=== PATIENT | female | born 1990 | race Caucasian/White ===

== ENCOUNTER 2017-07-19 19:06 | Inpatient (IN) | payer BC, OTHER ==
[~2017-07-19] VITALS: Ht 172.7 cm; Wt 90.7 kg
--- NOTE | 2017-07-19 21:15 | NUR ---
INTAKE ASSESSMENT BP: 145/85, HR: 105, RR:18, SpO2: 96% T:98.0 Pt is in stable condition and able to be admitted on the unit. Unit protocols regarding medications and vitals signs every 4 hours were explained. Pt verbalized understanding. Will continue admission upon arrival on the unit.
[2017-07-19] MEDS ORDERED: MAGNESIUM HYDROXIDE 30 ML LIQUID UDC PO PRN (21:30)
[2017-07-19] MEDS ORDERED: ACETAMINOPHEN 325 MG TABLET PO PRN (21:30)
[2017-07-19] MEDS ORDERED: MAG HYDROX/AL HYDROX/SIMETH 30 ML LIQUID UDC PO PRN (21:30)
[2017-07-19] MEDS ORDERED: METHOCARBAMOL 750 MG TABLET PO PRN (21:30)
[2017-07-19] MEDS ORDERED: diphenhydrAMINE 50 MG CAPSULE PO PRN (21:30)
[2017-07-19] MEDS ORDERED: DIAZEPAM 10 MG TABLET PO PRN ×2 (21:30)
[2017-07-19] MEDS ORDERED: LOPERAMIDE HCL 2 MG CAPSULE PO PRN ×2 (21:30)
[2017-07-19] MEDS ORDERED: LORAZEPAM 2 MG/1 ML VIAL IM PRN (21:30)
[2017-07-19] MEDS ORDERED: ONDANSETRON ODT 4 MG TAB.RAPDIS SL PRN (21:30)
[2017-07-19] MEDS ORDERED: MIRALAX 17 GM POWD.PACK PO PRN (21:30)
[2017-07-19] MEDS ORDERED: ONDANSETRON 4 MG/2 ML VIAL IM PRN (21:30)
[2017-07-19] MEDS ORDERED: DICYCLOMINE HCL 20 MG TABLET PO PRN (21:30)
[2017-07-19] MEDS ORDERED: DIAZEPAM 5 MG TABLET PO PRN (21:30)
[2017-07-19 21:54] LABS: *URINE HCG, QUAL NEGATIVE (NEGATIVE)
--- NOTE | 2017-07-19 22:00 | NUR ---
ADMISSION NOTE COWS:9 CIWA:9 Pt arrived ambulatory from [facility] Intake to the third floor accompanied by a DESIGN MAINTENANCE ENGINEER at 2129. Pt is a 26 year old female admitted on 07/19/17 for Benzodiazepine and Heroin dependency. Pt is full code with allergy to PCN. Pt reports PMHx of anxiety. She denies having a PCP and denies taking any home medications. She reports her last sobriety was for 5 months, 5 months ago. She reports her last detox was at [facility] in 2017 and has been living in [facility]. She recently relapsed and has been using for 3 weeks. She describes her current use as: 1. Xanax 6-8 mg daily for 3 weeks. Last dose: "6-8mg" on 07/18/17 2. Heroin (smoke) 1-3 grams daily for 3 weeks. Last dose: 1 gram on 07/19/17 "in the morning" She describes her withdrawal symptoms as " body aches, chills, nausea, anxiety and tremors." Upon assessment, pt is alert and oriented x4, speech is clear and audible. Pt noted to be anxious, agitated, restless and worried. Heart rate regular. Denies chest pain or SOB. PERRLA, breathing is even and unlabored, lung sounds clear. Abdomen is soft and non-distended. Bowel sounds present in all quadrants, last BM 07/18/17. Pt reports that BM is regular. Pt's skin is warm, dry and intact. MD aware of pt's admission. Pt oriented to room and unit. Safety measures in place. Will continue to monitor.
[2017-07-19 22:05] LABS: *AMPHETAMINE, URINE POSITIVE (NEGATIVE); *BARBITURATE, URINE NEGATIVE (NEGATIVE); *CANNABINOID, URINE POSITIVE (NEGATIVE); *COCCAINE, URINE NEGATIVE (NEGATIVE); *OPIATE, URINE POSITIVE (NEGATIVE); *PHENCYCLIDINE SCREEN,URINE NEGATIVE (NEGATIVE)
--- NOTE | 2017-07-19 22:15 | NUR ---
REFUSED LABS Pt refused to have labs drawn. Explained to pt that labs will be drawn at 0600. Pt verbalized understanding.
--- NOTE | 2017-07-19 22:24 | NUR ---
PRN ZOFRAN Pt complains of nausea with no episode of vomiting. PRN Zofran administered as ordered. Will monitor effectiveness.
[2017-07-19] MEDS ORDERED: DIAZEPAM 10 MG TABLET PO SCH (22:30)
[2017-07-19] MEDS ORDERED: BUPRENORPHINE HCL 2 MG TAB.SUBL SL PRN (23:00)
--- NOTE | 2017-07-19 23:24 | NUR ---
PRN ZOFRAN REASSESSMENT PRN medication effective. Pt reports decrease in nausea. Safety measures in place. Will continue to monitor.
[2017-07-20] VITALS: BP 103/57
[2017-07-20 04:00] VITALS: BP 116/73
--- NOTE | 2017-07-20 07:21 | NUR ---
END OF SHIFT Pt is a 26 year old female patient. She received a one time order of Valium and PRN Zofran. She is scheduled to start a 5 day Subutex and 4 day Valium taper today 07/20/17. She slept a total of 6 hrs, Intake: 355mL, Void: x1, BM:0, COWS:9, CIWA:9. She remains alert and oriented x4, breathing even and unlabored. Safety measures in place. Endorsed to AM shift.
[2017-07-20 08:00] VITALS: BP 115/64
[2017-07-20] MEDS: GABAPENTIN 400 MG CAPSULE PO SCH ×4 (08:08→20:39)
[2017-07-20] MEDS: DIAZEPAM 10 MG TABLET PO SCH ×4 (08:08→20:39)
[2017-07-20] MEDS: BUPRENORPHINE HCL 2 MG TAB.SUBL SL SCH ×3 (08:09→20:40)
[2017-07-20] MEDS ORDERED: TUBERCULIN,PURIF.PROT.DERIV. 5 TU/0.1 ML TEST ID ONE (09:00)
[2017-07-20 10:04] LABS: ALANINE AMINOTRANSFERASE 25 U/L (14-59); ALKALINE PHOSPHATASE 70 U/L (50-136); ASPARTATE AMINOTRANSFERASE 14 U/L (15-37); BILIRUBIN,TOTAL 0.2 mg/dL (0.2-1.0); CARBON DIOXIDE 28 mmol/L (21-32); CHLORIDE 103 mmol/L (98-107); CREATININE 0.9 mg/dL (0.6-1.3); GLUCOSE 108 mg/dL (74-106); MAGNESIUM 1.9 mg/dL (1.8-2.4); POTASSIUM 3.4 mmol/L (3.5-5.1); UREA NITROGEN, BLOOD 12 mg/dL (7-18)
[2017-07-20 10:06] LABS: ETHANOL < 3 MG/DL (0-0)
[2017-07-20 10:15] LABS: BASOPHILS % (AUTO) 0.5 % (0.0-2.0); EOSINOPHILS # (AUTO) 0.3 K/uL (0.0-0.7); EOSINOPHILS % (AUTO) 5.8 % (0.0-7.0); HEMATOCRIT 36.9 % (31.2-41.9); HEMOGLOBIN 11.7 g/dL (10.9-14.3); LYMPHOCYTES # (AUTO) 1.1 K/uL (20.0-40.0); LYMPHOCYTES % (AUTO) 20.6 % (20.5-51.5); MEAN CORPUSCULAR HEMOGLOBIN 22.9 uug (24.7-32.8); MEAN CORPUSCULAR HGB CONC 32 g/dL (32.3-35.6); MONOCYTES # (AUTO) 0.6 K/uL (2.0-10.0); MONOCYTES % (AUTO) 10.6 % (0.0-11.0); NEUTROPHILS # (AUTO) 3.2 K/uL (1.8-8.9); NEUTROPHILS % (AUTO) 62.5 % (38.5-71.5); PLATELET COUNT (AUTO) 239 K/uL (179-408); RED BLOOD CELL COUNT(AUTO) 5.12 MIL/uL (3.63-4.92); WHITE BLOOD COUNT (AUTO) 5.2 K/uL (3.8-11.8)
[2017-07-20 11:09] LABS: BAND % (MANUAL) 1 % (0-10); EOSINOPHILS % (MANUAL) 7 % (0-8); LYMPHOCYTES % (MANUAL) 23 % (20-40); MONOCYTES % (MANUAL) 11 % (2-10); NEUTROPHILS % (MANUAL) 58 % (42-75)
[2017-07-20 12:00] VITALS: BP 123/66
[2017-07-20 16:00] VITALS: BP 112/66
--- NOTE | 2017-07-20 18:41 | NUR ---
end of shift report , patient has been more visible on unit in afternoon less anxiety per patient . interacting with select male client appears to be drug seekig no outbursts continue to monitor for safety
--- NOTE | 2017-07-20 19:30 | NUR ---
START OF SHIFT Received 26 year old female patient. Pt is awake, alert and oriented x4. Noted to be walking around the unit, appears anxious, worried and suspicious. Per endorsement, pt received new order for Seroquel 300 mg HS. She did not receive or request any PRN medications. Safety measures in place. Will continue to monitor.
[2017-07-20 20:00] VITALS: BP 132/81
[2017-07-20] MEDS ORDERED: POTASSIUM CHLORIDE 10 MEQ CAPSULE.SA PO ONE (21:00)
[2017-07-20] MEDS: QUETIAPINE FUMARATE 200 MG TABLET PO PRN (22:00)
--- NOTE | 2017-07-20 22:00 | NUR ---
PRN SEROQUEL Pt complains of insomnia and reports difficulty staying asleep. PRN Seroquel administered as ordered. Safety measures in place. Will monitor.
--- NOTE | 2017-07-20 23:10 | NUR ---
PRN SEROQUEL REASSESSMENT PRN medication effective. Pt is lying in bed with eyes closed and is asleep. Breathing is even and unlabored. Safety measures in place. Will continue to monitor.
[2017-07-21 00:15] VITALS: BP 123/72
--- NOTE | 2017-07-21 04:19 | NUR ---
VITALS REFUSED, COWS/CIWA DEFERRED 0400 vitals refused by pt. Pt stated she does not want to be woken up at 0400 for vitals. COWS and CIWA deferred d/t pt lying in bed with eyes closed and is asleep. Breathing even and unlabored. Safety measures in place. Will continue to monitor.
--- NOTE | 2017-07-21 07:13 | NUR ---
END OF SHIFT Pt is a 26 year old female patient. Pt remains alert and oriented x4. Pt reported that she has trouble falling and staying asleep. She Received PRN Seroquel 300 mg at 2200. Her Potassium was 3.4, and was replaced at 2200 with Potassium Chloride 30 meQ. She slept a total of 7 hrs, Intake: 1908mL, Void: x4, BM:0, COWS:8, CIWA:8. Breathing is even and unlabored. Safety measures in place. Endorsed to AM shift.
--- NOTE | 2017-07-21 07:30 | NUR ---
START OF SHIFT PT IS A/O X4, RESPIRATIONS EVEN AND UNLABORED. PT REPORTS HAVING BACK PAIN 7/10, GENERALIZED BODY ACHES, HOT/COLD SWEATS, ANXIETY, RESTLESSNESS, NAUSEA. PT REFUSED ZOFRAN. PT REPORTS HAVING INTERMITTENT SLEEP THROUGHOUT NIGHT. SIDE RAILS UP X2 BED IS IN LOWEST POSITION, ALL SAFETY MEASURES IN PLACE. CALL LIGHT WITHIN REACH. WILL CONTINUE TO MONITOR.
[2017-07-21 08:00] VITALS: BP 97/63
[2017-07-21] MEDS: IBUPROFEN 600 MG TABLET PO PRN ×2 (08:44→21:03)
--- NOTE | 2017-07-21 08:44 | NUR ---
PRN IBUPROFEN 600 MG PO PRN GIVEN FOR BACK ACHE 12/18. WILL MONITOR FOR EFFECTIVENESS.
[2017-07-21] MEDS: GABAPENTIN 400 MG CAPSULE PO SCH ×4 (08:45→21:03)
[2017-07-21] MEDS: DIAZEPAM 10 MG TABLET PO SCH ×3 (08:45→21:04)
[2017-07-21] MEDS ORDERED: HYDROXYZINE PAMOATE 25 MG CAPSULE PO PRN (09:00)
[2017-07-21] MEDS ORDERED: BUPRENORPHINE HCL 2 MG TAB.SUBL SL SCH (09:00)
--- NOTE | 2017-07-21 09:44 | NUR ---
REASSESSMENT PT REPORTED MED WAS EFFECTIVE FOR BACK PAIN NOW 0/10. WILL CONTINUE TO MONITOR.
[2017-07-21 12:00] VITALS: BP 109/66
[2017-07-21 13:17] LABS: HEPATITIS B SURFACE AG Negative (Negative)
[2017-07-21] MEDS: DICYCLOMINE HCL 20 MG TABLET PO SCH ×2 (14:02→21:03)
[2017-07-21] MEDS: BUPRENORPHINE HCL 2 MG TAB.SUBL SL SCH ×2 (14:02→21:05)
[2017-07-21] MEDS: CLONIDINE HCL 0.1 MG TABLET PO PRN (14:03)
--- NOTE | 2017-07-21 14:03 | NUR ---
PRN CLONIDINE 0.1 MG PO PRN GIVEN FOR CHILLS, COLD/HOT SWEATS, ANXIETY, RESTLESSNESS, AND AGITATION. WILL MONITOR FOR EFFECTIVENESS.
--- NOTE | 2017-07-21 15:03 | NUR ---
REASSESSMENT PT REPORTED MEDICATION WAS EFFECTIVE FOR S/S OF W/D. PT APPEARS CALMER AND STATES MED HELPED CHILLS, HOT/COLD FLASHES. WILL CONTINUE TO MONITOR.
[2017-07-21 16:00] VITALS: BP 98/62
--- NOTE | 2017-07-21 19:30 | NUR ---
END OF SHIFT PT LAST COWS 10 AND CIWA 7 AT 1600. PT REPORTS HAVING BACK PAIN, HOT/COLD SWEATS, ANXIETY, RESTLESSNESS. PT ALL SAFETY MEASURES IN PLACE. ALL SAFETY MEASURES IN PLACE. CALL LIGHT WITHIN REACH. WILL GIVE ALL PERTINENT INFO AND ENDORSEMENT TO JUNCTION MAKER NURSE.
--- NOTE | 2017-07-21 19:40 | NUR ---
START OF SHIFT Patient is a 26-year-old female admitted on 07/19/17 for Xanax and heroin withdrawal. Patient is on day 2 of 4-day Valium and 5-day Subutex taper, tolerating. Last COWS was 10, CIWA 7. Patient received PRN Clonidine and PRN Motrin during day shift for S/S of withdrawal and for back pain. Patient reports she currently has back pain of 6/10 on pain scale. She also reports constipation and is requesting PRN MOM. Patient appears anxious and restless. Safety measures in place, bed locked in low position, side rails up x2, call light within reach. Will continue to monitor.
[2017-07-21] MEDS ORDERED: DIAZEPAM 10 MG TABLET PO PRN ×2 (19:45)
[2017-07-21] MEDS ORDERED: DIAZEPAM 5 MG TABLET PO PRN (19:45)
[2017-07-21] MEDS ORDERED: KETOROLAC TROMETHAMINE 30 MG INJ IM PRN (19:45)
[2017-07-21 20:00] VITALS: BP 127/84
[2017-07-21] MEDS: CLONIDINE HCL 0.1 MG TABLET PO SCH (21:04)
--- NOTE | 2017-07-21 21:17 | NUR ---
PRN MOTRIN AND MOM Patient reports lower back pain 6/10 on pain scale, and is also requesting PRN for constipation. PRN Motrin given PO at 2102 and PRN milk of magnesia given PO at 2116. Safety measures in place, call light within reach. Will reassess for effectiveness.
[2017-07-21] MEDS: QUETIAPINE FUMARATE 200 MG TABLET PO PRN (22:03)
--- NOTE | 2017-07-21 22:03 | NUR ---
PRN SEROQUEL Patient reported difficulty sleeping and requested PRN Seroquel; given PO. Safety measures in place, call light within reach. Will reassess for effectiveness.
--- NOTE | 2017-07-21 22:17 | NUR ---
PRMundo SINGLETON AND MOM REASSESSMENT Patient reports that her pain has subsided. No BM within administration of MOM PO. Will continue to monitor and assess. Safety measures in place, call light within reach.
--- NOTE | 2017-07-21 23:03 | NUR ---
PRN SEROQUEL REASSESSMENT Patient is resting in bed with eyes closed, respirations even and unlabored; PRN effective. Safety measures in place, call light within reach. Will continue to monitor.
--- NOTE | 2017-07-22 | NUR ---
VITALS REFUSED, COWS & CIWA DEFERRED Patient refused midnight vitals, COWS and CIWA deferred due to patient asleep. Respirations 14/min, safety measures in place, call light within reach. Will continue to monitor.
--- NOTE | 2017-07-22 04:00 | NUR ---
VITALS REFUSED, COWS AND CIWA DEFERRED Patient refused 4AM vitals, COWS and CIWA deferred due to patient asleep. Respirations 16/min, safety measures in place, call light within reach. Will continue to monitor.
--- NOTE | 2017-07-22 07:30 | NUR ---
END OF SHIFT Patient is a 26-year-old female admitted on 07/19/17 for Xanax and heroin withdrawal. Patient is on day 3 of 4-day Valium and 5-day Subutex taper. Last COWS was 9, CIWA 8. Patient received PRN Seroquel, Motrin, and MOM. Patient slept for 7 hours, total intake 1,355 mL, void x3 stool x0. Safety measures in place, bed locked in low position, side rails up x2, call light within reach. Will endorse to day shift.
--- NOTE | 2017-07-22 07:36 | NUR ---
START OF SHIFT RECEIVED PT LAYING IN BED, A/OX4, RESPIRATIONS EVEN AND UNLABORED. PT IS PRESENTED WITH BACK PAIN 8/10 PAIN, COLD/HOT SWEATS, GENERALIZED BODY ACHES, ANXIETY, RESTLESSNESS. SIDE RAILS UPX2, BED IS IN LOWEST POSITION. ALL SAFETY MEASURES IN PLACE. WILL CONTINUE TO MONITOR.
[2017-07-22 08:00] VITALS: BP 105/62
[2017-07-22] MEDS: DIAZEPAM 5 MG TABLET PO SCH ×2 (09:04→14:43)
[2017-07-22] MEDS: GABAPENTIN 400 MG CAPSULE PO SCH ×4 (09:04→21:13)
[2017-07-22] MEDS: FAMOTIDINE 20 MG TABLET PO SCH (09:04)
[2017-07-22] MEDS: BUPRENORPHINE HCL 2 MG TAB.SUBL SL SCH ×3 (09:04→21:14)
[2017-07-22] MEDS: DICYCLOMINE HCL 20 MG TABLET PO SCH ×3 (09:05→21:13)
[2017-07-22] MEDS: CLONIDINE HCL 0.1 MG TABLET PO SCH ×3 (09:05→21:14)
[2017-07-22 12:00] VITALS: BP 130/77
[2017-07-22 16:00] VITALS: BP 103/66
--- NOTE | 2017-07-22 18:50 | NUR ---
END OF SHIFT PT LAST COWS 10, CIWA 8. PT REPORTS HAVING INCREASED S/S OF W/D DUE TO LOWERING OF TAPER. PT ATTENDED GROUP BUT EXCUSED FOR 330 GROUP DUE TO NOT FEELING WELL. ALL SAFETY MEASURES IN PLACE. WILL GIVE ALL ENDORSEMENT AND PERTINENT INFO TO DOUGH SHEETER NURSE.
--- NOTE | 2017-07-22 19:15 | NUR ---
Start of shift note Received report from day shift nurse. Pt is a 26 yo female, A+Ox4, presenting to [facility] for Opiate/Benzo dependence. Pt has Allergies to PCN, is on Full code status, and on Regular diet. Pt is on Fall and Seizure precautions. Pt has HX of Anxiety. Pt is on 4 day Valium and 5 day Subutex tapers, tolerated well. No s/s of distress noted at this time. Respirations even and unlabored. Will continue to monitor.
[2017-07-22 20:11] VITALS: BP 135/78
[2017-07-22] MEDS ORDERED: DIAZEPAM 10 MG TABLET PO SCH (21:00)
[2017-07-22] MEDS: QUETIAPINE FUMARATE 200 MG TABLET PO PRN (22:20)
--- NOTE | 2017-07-22 22:20 | NUR ---
PRN Seroquel Pt c/o inability to sleep and requested for PRN Seroquel. Medication given and tolerated well. Will reassess within 1 HR. Will continue to monitor.
--- NOTE | 2017-07-22 23:10 | NUR ---
PRN Seroquel Reassessment Medication effective. Pt is resting well in bed. No s/s of ASE/distress noted at this time. Respirations even and unlabored. Will continue to monitor.
[2017-07-23 00:43] VITALS: BP 133/72
[2017-07-23 04:16] VITALS: BP 132/75
--- NOTE | 2017-07-23 07:00 | NUR ---
End of shift note Pt is a 26 yo female, A+Ox4, presenting to [facility] for Opiate/Benzo dependence. Pt has Allergies to PCN, is on Full code status, and on Regular diet. Pt is on Fall and Seizure precautions. Pt has HX of Anxiety. Pt is on 4 day Valium and 5 day Subutex tapers, tolerated well. Pt was given PRN Seroquel @2220. Pt slept for a total of 6 HRS. Last COWS: 8 and Last CIWA: 8 @0400. No s/s of distress noted at this time. Respirations even and unlabored. Will endorse to day shift nurse.
--- NOTE | 2017-07-23 07:45 | NUR ---
START OF SHIFT RECEIVED PT LAYING IN BED, A/OX4, RESPIRATIONS EVEN AND UNLABORED. PT C/O COLD/HOT SWEATS, GENERALIZED BODY ACHES, ANXIETY, RESTLESSNESS. ENCOURAGED PT TO PARTICIPATE IN GROUPS AND ACTIVITIES TO DEVELOP COPING SKILLS AND HELP ALLEVIATE ANXIETY. SIDE RAILS UPX2, BED IS IN LOWEST POSITION. ALL SAFETY MEASURES IN PLACE. WILL CONTINUE TO MONITOR.
[2017-07-23 08:00] VITALS: BP 106/61
[2017-07-23] MEDS: FAMOTIDINE 20 MG TABLET PO SCH (08:56)
[2017-07-23] MEDS: GABAPENTIN 400 MG CAPSULE PO SCH ×4 (08:56→21:20)
[2017-07-23] MEDS: DICYCLOMINE HCL 20 MG TABLET PO SCH ×3 (08:57→21:20)
[2017-07-23] MEDS: DIAZEPAM 5 MG TABLET PO SCH ×2 (08:57→21:20)
[2017-07-23] MEDS: CLONIDINE HCL 0.1 MG TABLET PO SCH (08:57)
[2017-07-23] MEDS: BUPRENORPHINE HCL 2 MG TAB.SUBL SL SCH ×2 (08:57→21:20)
[2017-07-23 12:00] VITALS: BP 101/61
[2017-07-23] MEDS: CLONIDINE HCL 0.1 MG TABLET PO PRN ×2 (15:28→22:29)
--- NOTE | 2017-07-23 15:28 | NUR ---
PRN CLONIDINE 0.1 PO PRN GIVEN FOR INCREASED ANXIETY, AGITATION, COLD/HOT SWEATS, CHILLS. HR:120. WILL MONITOR FOR EFFECTIVENESS.
[2017-07-23 16:00] VITALS: BP 126/76
--- NOTE | 2017-07-23 16:25 | NUR ---
REASSESSMENT PT REPORTED MEDICATION WAS EFFECTIVE FOR ANXIETY AND PT APPEARS MORE CALM. WILL CONTINUE TO MONITOR.
--- NOTE | 2017-07-23 19:37 | NUR ---
END OF SHIFT LAST COWS 11 CIWA 10 @1600. PT C/O INCREASED S/S OF W/D. PT REPORTS HAVING HOT/COLD SWEATS, INCREASED ANXIETY, RESTLESSNESS, FATIGUE, IRRITABILITY. PT PRESENTED WITH INCREASED RR, HR ELEVATED TO 120 DURING SHIFT. CLONIDINE PO PRN GIVEN AND WAS EFFECTIVE. PT DID NOT ATTEND AM GROUP DUE TO NOT FEELING WELL BUT WAS ABLE TO ATTEND AFTERNOON GROUP. ALL SAFETY MEASURES IN PLACE. WILL GIVE ENDORSEMENT TO TELECOMMUNICATION EQUIPMENT REPAIRER NURSE.
--- NOTE | 2017-07-23 19:45 | NUR ---
START OF SHIFT Patient is a 26-year-old female admitted on 07/19/17 for xanax and heroin withdrawal. Patients last COWS was 11, last CIWA was 10 per day shift. Per day shift nurse patient received PRN clonidine today. Patient is on day 4 of 4-day valium and 5-day subutex taper, tolerating well but verbalizing concern about withdrawing from Subutex once discharged. Upon assessment, patient states I had body aches last night and this morning, but I feel much better now. Patient is scheduled to receive Bentyl, gabapentin, valium, and subutex at 2100. Safety measures in place, bed locked in low position, side rails up x2, call light within reach. Will continue to monitor. Addendum: 07/23/17 at 2314 by CINDY BASURTO LVN Quoted patient: "I had body aches last night and this morning, but I feel much better now."
[2017-07-23 20:00] VITALS: BP 119/74
[2017-07-23] MEDS: QUETIAPINE FUMARATE 200 MG TABLET PO PRN (22:05)
--- NOTE | 2017-07-23 22:05 | NUR ---
PRN SEROQUEL Patient states she has great difficulty sleeping and is requesting PRN Seroquel. Safety measures in place, call light within reach. Will reassess in one hour.
--- NOTE | 2017-07-23 22:29 | NUR ---
PRN CLONIDINE Patient reports anxiety, agitation, chill, and appears restless. HR 113. PRN Clonidine 0.1mg given PO. Safety measures in place, call light within reach. Will reassess for effectiveness.
--- NOTE | 2017-07-23 23:05 | NUR ---
PRN SEROQUEL REASSESSMENT Patient is in bed with eyes closed, sleeping, respirations even and unlabored. PRN Seroquel effective. Safety measures in place, call light within reach. Will continue to monitor.
--- NOTE | 2017-07-23 23:29 | NUR ---
PRN CLONIDINE REASSESSMENT Patient is in bed with eyes closed, sleeping, respirations even and unlabored. Unable to reassess PRN Clonidine at this time. Safety measures in place, call light within reach. Will continue to monitor.
--- NOTE | 2017-07-24 | NUR ---
VITALS REFUSED, COWS & CIWA DEFERRED Patient refused midnight vitals, respirations even and unlabored, 16/min. COWS and CIWA deferred due to patient sleeping; to be assessed and scored while patient is awake per protocol. Safety measures in place, call light within reach. Will continue to monitor.
--- NOTE | 2017-07-24 04:00 | NUR ---
VITALS REFUSED, COWS & CIWA DEFERRED Patient refused 4AM vitals, respirations are even and unlabored, 16/min at this time. COWS and CIWA deferred due to patient sleeping; to be assessed and scored while patient is awake per protocol. Safety measures in place, bed locked in low position, side rails up x2, call light within reach. Will continue to monitor.
--- NOTE | 2017-07-24 07:10 | NUR ---
Start of Shift Report from the night nurse: pt is a 26 y/o female here for Heroin 6-8mg daily for 3wks and Xanax 1-3g smoked daily for 3 weeks; 4 day Valium and 5 day Subutex tapers ordered. Pt is a full code, allergic to PCN, Regular diet, fal and seizure pre precautions ordered. V/S stable. Skin is intact. PRN Clonidine and Seroquel given last night. No new labs or orders endorsed to me. Last COWS 8 CIWA 9. Pt is asleep in room. Will cont. to monitor the pt.
--- NOTE | 2017-07-24 07:25 | NUR ---
END OF SHIFT Patient is a 26-year-old female admitted on 07/19/17 for xanax and heroin withdrawal. Patient slept for 8 hours, total intake 1,349 mL, void x2, stool x0. Patient received PRN Seroquel at 2205 for difficulty sleeping and Clonidine at 2229 for anxiety, agitation, restlessness and chills. Both PRNs were effective. Today is patients day 5 of her 5-day Subutex taper, she has completed her 4-day valium taper yesterday; tolerated well. Last COWS was 8, last CIWA 9. Safety measures in place, bed locked in low position, side rails up x2, call light within reach. Will endorse to day shift.
[2017-07-24 08:00] VITALS: BP 108/51
--- NOTE | 2017-07-24 08:30 | NUR ---
PRN Medication Administration Pt is resting in bed, flushed, anxious and somewhat agitated, V/S stable; PRN Clonidine 0.1mg & Vistaril 25mg given as ordered. Will reassess in 1H. Addendum: 07/24/17 at 1255 by EMPERATRIZ AMBRIZ RN ERROR WRONG PT
[2017-07-24] MEDS: DICYCLOMINE HCL 20 MG TABLET PO SCH ×3 (08:48→21:27)
[2017-07-24] MEDS: FAMOTIDINE 20 MG TABLET PO SCH (08:48)
[2017-07-24] MEDS: GABAPENTIN 400 MG CAPSULE PO SCH ×4 (08:49→21:27)
[2017-07-24] MEDS ORDERED: DIAZEPAM 5 MG TABLET PO SCH (09:00)
[2017-07-24] MEDS ORDERED: BUPRENORPHINE HCL 2 MG TAB.SUBL SL SCH (09:00)
--- NOTE | 2017-07-24 09:30 | NUR ---
PRN Medication Administration Pt just returned from smoking and c/o muscle tension; PRN Robaxin 750mg given as ordered. Pt states that is she is frustrated that she was unable to express her feeling completely with psych eval. I explained that if she still feels anxious that she has more PRN medications to help with anxiety w/n parameters and to let met know. Will reassess in 1H. Addendum: 07/24/17 at 1256 by EMPERATRIZ AMBRIZ RN ERROR WRONG PT.
--- NOTE | 2017-07-24 10:30 | NUR ---
Reassessment Pt is in room writing in journal, and states that she denies muscle tension; Robaxin is effective. Will cont. to monitor the pt. Addendum: 07/24/17 at 1307 by EMPERATRIZ AMBRIZ RN error wrong pt
[2017-07-24] MEDS: CLONIDINE HCL 0.1 MG TABLET PO PRN ×2 (12:33→21:30)
--- NOTE | 2017-07-24 12:35 | NUR ---
PRN Medication Administration Pt is in room with moderate anxiety, V/S stable; PRN Clonidine 0.1mg given as ordered. Will reassess in 1H.
[2017-07-24 13:00] VITALS: BP 126/72
--- NOTE | 2017-07-24 13:35 | NUR ---
Reassessment Pt is about to go down and smoke after lunch and states that her anxiety is more relieved; Clonidine is effective. Will cont. to monitor the pt.
[2017-07-24 16:00] VITALS: BP 98/63
--- NOTE | 2017-07-24 16:15 | NUR ---
PRN Medication Administration Pt is very upset, agitated, and anxious since the group therapy was not tolerable for her and wanted to go to smoke. The DON and CN explained to her that she has to wait to go smoke after the group therapy is over but she became angry and more anxious; PRN Vistaril 25mg & Robaxin 750mg given with scheduled Gabapentin and Bentyl. Dr. Palacios notified that the pt wants Once time dose Clonidine she states was explained to her this morning. Will f/u withthe new one time order of clonidine and will reassess PRNs in 1H.
[2017-07-24] MEDS ORDERED: CLONIDINE HCL 0.1 MG TABLET PO ONE (16:45)
--- NOTE | 2017-07-24 16:45 | NUR ---
Reassessment & PRN Medication Administration Pt is in room resting in bed and watching T.V. she states that she is still anxious but muscle tension is relieved; Robaxin is effective and Vistaril is somewhat effective, notified and new order for ONE time dose of Clonidine 0.1mg given as ordered. Will reassess in 1H.
--- NOTE | 2017-07-24 17:45 | NUR ---
Reassessment Pt returned from dinner and smoking and states that her anxiety is relieved; Clonidine is effective. Will cont. to monitor the pt.
--- NOTE | 2017-07-24 19:16 | NUR ---
End of Shift Report to the night nurse: pt is a 26 y/o female here for Heroin 6-8mg daily for 3wks and Xanax 1-3g smoked daily for 3 weeks; 4 day Valium and 5 day Subutex tapers ordered. Pt is a full code, allergic to PCN, Regular diet, fal and seizure pre precautions ordered. Clear lung sounds and no SOB. V/S stable. Skin is intact. Last BM today. Adequeate fluid intake and eating habits during my shift. PRN Vistaril 25mg, Robaxin 750, & Clonidine 0.1mg given during my shift with a ONE time dose of Clonidine 0.1mg at 1645pm for her anxiety. New order for d/c tomorrow. No hallucinations, delusions, or suicidal ideations noted. Pt attempted to attend group therapy and activies during my shift. Last COWS 2 CIWA 2.
[2017-07-24 20:00] VITALS: BP 119/68
--- NOTE | 2017-07-24 20:00 | NUR ---
Start of Shift Pt is a 26 year old female admitted for Opiate/Benzo withdrawal, completed Valium and Subutex taper. Pt is scheduled for discharge tomorrow. Upon assessment, pt presents in room alert/oriented x3, anxious/irritable, flushed/clammy skin, worried and preoccupied with discharge. Reassurance provided pt redirected towards positive measures on how to manage anxiety. Medications due, safety measures in place, will continue to monitor.
[2017-07-24] MEDS ORDERED: METH-406 PO (21:56)
[2017-07-24] MEDS ORDERED: CLON0.1T14 PO (21:56)
[2017-07-24] MEDS ORDERED: DICY20TA28 PO (21:56)
[2017-07-24] MEDS ORDERED: GABA-536 PO (21:56)
[2017-07-24] MEDS ORDERED: HYDR-3895 PO (21:56)
[2017-07-24] MEDS ORDERED: IBUP-1955 PO (21:56)
[2017-07-24] MEDS ORDERED: QUET200T PO (21:56)
[2017-07-24] MEDS: QUETIAPINE FUMARATE 200 MG TABLET PO PRN (22:21)
--- NOTE | 2017-07-24 22:21 | NUR ---
PRN Administration Pt is anxious, irritable, fidgety with rapid speech. Clonidine 0.1mg PRN administered. Safety measures in place, will continue to monitor. Addendum: 07/25/17 at 0109 by KELBY TRUJILLO RN WRONG TIME CHARTED: CLONIDINE 0.1MG ADMINISTERED AT 2130
--- NOTE | 2017-07-24 22:22 | NUR ---
PRN Administration/Reassessment Upon reassessment, pt reports a decrease in anxious, pt is in bed, ready for sleep and requests sleep aid. Seroquel 300mg PRN administered. Safety measures in place, will continue to monitor.
--- NOTE | 2017-07-24 23:30 | NUR ---
PRN Reassessment Pt is sleeping, in bed, resting respirations even. Seroquel 300mg PRN for sleep effective. Safety measures in place, will continue to monitor.
[2017-07-25] VITALS: BP 108/58
--- NOTE | 2017-07-25 | NUR ---
COWS/CIWA deferred d/t pt sleeping. BP 108/58, pulse 82, resp 16, SpO2 98% room air, temp 98.[address], will continue to monitor.
--- NOTE | 2017-07-25 04:00 | NUR ---
COWS/CIWA deferred d/t pt sleeping. Pt refused to be woken up for 0[address], will continue to monitor.
--- NOTE | 2017-07-25 07:10 | NUR ---
End of Shift Pt is a 26 year old female admitted for Opiate/Benzo withdrawal, completed Valium and Subutex taper. Pt is scheduled for discharge today. During shift, pt presented to be anxious/irritable, flushed/clammy skin, worried and preoccupied with discharge scheduled medications administered along with clonidine 0.1mg PRN and Seroquel 300mg PRN for sleep. COWS 5 and CIWA 5. Pt slept for 7 hours, intake of 1198m PO, voids x3 and stool x0. Safety measures in place, endorsed to day shift nurse.
--- NOTE | 2017-07-25 07:45 | NUR ---
START OF SHIFT RECEIVED PT RESTING IN BED, A/OX4, RESPIRATIONS EVEN AND UNLABORED. PT REPORTS HAVING ANXIETY ABOUT BEING D/C FROM [facility]. PT IS TO BE D/C'ED TODAY. SIDE RAILS UPX2, BED IS IN LOWEST POSITION. CALL LIGHT WITHIN REACH. WILL CONTINUE TO MONITOR.
[2017-07-25] MEDS: GABAPENTIN 400 MG CAPSULE PO SCH (08:27)
[2017-07-25] MEDS: FAMOTIDINE 20 MG TABLET PO SCH (08:27)
[2017-07-25] MEDS: DICYCLOMINE HCL 20 MG TABLET PO SCH (08:27)
[2017-07-25 08:28] VITALS: BP 105/62
[2017-07-25] MEDS: CLONIDINE HCL 0.1 MG TABLET PO PRN (08:28)
--- NOTE | 2017-07-25 08:28 | NUR ---
PRN CLONIDINE 0.1 MG PO PRN GIVEN FOR ANXIETY 11/18. WILL MONITOR FOR EFFECTIVENESS.
--- NOTE | 2017-07-25 09:30 | NUR ---
REASSESSMENT PT REPORTED MED WAS EFFECTIVE. PT APPEARS TO BE CALM.
--- NOTE | 2017-07-25 09:54 | NUR ---
DISCHARGE NOTE PT IS IN STABLE CONDITION, [facility], DISCHARGED AT 07/25/17 ON 0954. PT SIGNED D/C PAPERWORK AND D/C INSTRUCTIONS GIVEN. PT VERBALIZED UNDERSTANDING. PRESCRIPTIONS SENT FORWARDED ELECTRONICALLY AND PT HAD NO HOME MEDS. PT LEFT THE BUILDING WITH ALL BELONGINGS AND HAD BEEN PICKED UP BY "FOZIA GEIGER" AND BEING TAKEN TO [facility].
== END 2017-07-25 09:54 | disposition other institution (70) | DRG 895 ==
LOC: SRC 20:35
PROVIDERS: ADMIT Internal Medicine; ATTEND Internal Medicine
DX: F11.23 Opioid dependence with withdrawal (principal); E87.6 Hypokalemia; F17.210 Nicotine dependence, cigarettes, uncomplicated; F13.232 Sedative, hypnotic or anxiolytic dependence with withdrawal with perceptual disturbance; G89.29 Other chronic pain; F41.9 Anxiety disorder, unspecified; G47.00 Insomnia, unspecified; Z91.89 Other specified personal risk factors, not elsewhere classified; Z81.8 Family history of other mental and behavioral disorders; Z81.1 Family history of alcohol abuse and dependence; M54.40 Lumbago with sciatica, unspecified side; F15.10 Other stimulant abuse, uncomplicated; F12.90 Cannabis use, unspecified, uncomplicated; R73.9 Hyperglycemia, unspecified
CPT/HCPCS: 36415; 70030-TC; 80307; 80324; 80349; 80361; 83735; 84703; 85025; 86580; 86592; 86705; 86803; 87340; 87806; G0480; J1885; Q0162